=== PATIENT | female | born 1985 | race Caucasian/White ===

== ENCOUNTER → 2017-12-28 | Outpatient (CLI) | payer OTHER ==
--- NOTE | 2017-12-28 12:30 | RAD ---
DATE: 12/28/2017 EXAM: DIGITAL DIAGNOSTIC BILATERAL, BREAST RIGHT HISTORY: Right breast lump and pain COMPARISON: None available This study was interpreted with the benefit of Computerized Aided Detection (CAD). The breast parenchyma is dense, which could reduce the sensitivity of mammography. Breast parenchyma level density D. FINDINGS: The breasts are extremely dense in a heterogeneous pattern limiting the sensitivity of this exam. The patient's state and history of nursing is presumably contributing to this dense pattern. No spiculated mass or architectural distortion is seen. A few scattered benign type microcalcifications are noted. Right breast ultrasound, 12/28/2017: A targeted ultrasound exam was performed of the area of palpable concern at the 10:00 location approximately 2 cm in the nipple. At this level there is a oval shaped subcutaneous nodule which is isoechoic relative to the adjacent dense fibroglandular tissues. It measures 1.8 x 1.9 x 0.9 cm. There is internal vascularity. There is no significant posterior acoustic enhancement or shadowing. IMPRESSION: 1. Extremely dense breasts. 2. The area of palpable concern at the 10:00 location right breast appears to correspond to a smooth, solid, relatively isoechoic nodule. This most likely represents a fibroadenoma. A circumscribed malignancy cannot be entirely excluded. Clinical surveillance and possibly sonographic follow-up is suggested. If clinical concern persists or worsens, ultrasound guided biopsy may be useful for further evaluation. BI-RADS CATEGORY: 3 PROBABLY BENIGN FINDING(S)-SHORT INTERVAL FOLLOW-UP SUGGESTED RECOMMENDED FOLLOW-UP: CLIN FOLLOW UP IMAGING CLINICALLY INDICATED PQRS compliance statement: Patient information was entered into a reminder system with a target due date for the next mammogram. Mammography is a sensitive method for finding small breast cancers, but it does not detect them all and is not a substitute for careful clinical examination. A negative mammogram does not negate a clinically suspicious finding and should not result in delay in biopsying a clinically suspicious abnormality. "Our facility is accredited by the [employer] Mammography Program."
== END | disposition home or self-care (01) ==
LOC: MAMMO 09:42
DX: N63.11 Unspecified lump in the right breast, upper outer quadrant (principal)
CPT/HCPCS: 76641; 77066